=== PATIENT | female | born 1955 | race Caucasian/White ===

== ENCOUNTER 2016-11-23 08:11 | Day surgery (SDC) | payer OTHER ==
[2016-11-23] MEDS ORDERED: NS 500 ML IV 500 ML IV ONE (08:39)
[2016-11-23] MEDS ORDERED: TETRACAINE 0.5% OPHTH 1 DOSE AFFEYE ONE ×2 (09:32→11:24)
[2016-11-23] MEDS ORDERED: VIGAMOX 0.5% OPHTH 1 DOSE AFFEYE ONE ×5 (09:33→11:52)
[2016-11-23] MEDS ORDERED: PROLENSA OPHTH 1 DOSE AFFEYE ONE (09:44)
[2016-11-23] MEDS ORDERED: ALPHAGAN-P OPHTH 1 DOSE AFFEYE ONE (09:45)
[2016-11-23] MEDS ORDERED: MYDRIACIL OPHTH 1 DOSE AFFEYE ONE ×4 (09:46→09:49)
[2016-11-23] MEDS ORDERED: AK-DILATE 2.5% OPHTH 1 DOSE OP ONE ×4 (09:46→09:49)
[2016-11-23] MEDS ORDERED: CYCLOGYL 1% OPHTH 1 DOSE OP ONE ×4 (09:46→09:49)
[2016-11-23] MEDS ORDERED: BETADINE OPHTH SOLN 5% EACHEYE ONE (11:24)
[2016-11-23] MEDS ORDERED: ADRENALINE CHL INJ IJ ONE ×2 (11:34→11:41)
[2016-11-23] MEDS ORDERED: DUOVISC IO ONE ×2 (11:34→11:41)
[2016-11-23] MEDS ORDERED: BSS OPHTH (PLAIN) 500 ML with VANCOMYCIN HCL 500 MG VIAL 25 MG, ADRENALINE CHL INJ 1 MG IR ONE ×6 (11:34)
[2016-11-23] MEDS ORDERED: XYLOCAINE-MPF 1% IJ ONE ×2 (11:34→11:41)
[2016-11-23 15:59] VITALS: BP 133/76
== END 2016-11-23 12:18 | disposition home or self-care (01) ==
LOC: SURG1 08:11
PROVIDERS: ATTEND Ophthalmology
PROC: 08RK3JZ Replacement of Left Lens with Synthetic Substitute, Percutaneous Approach (ICD-10-PCS; principal; 2016-11-23 15:00)
PROC: 08DK3ZZ Extraction of Left Lens, Percutaneous Approach (ICD-10-PCS; principal; 2016-11-23 15:00)
DX: H25.12 Age-related nuclear cataract, left eye (principal); H25.012 Cortical age-related cataract, left eye
CPT/HCPCS: A4217; J0170; J3370

== ENCOUNTER 2016-12-28 07:35 | Day surgery (SDC) | payer OTHER ==
[2016-12-28] MEDS ORDERED: TETRACAINE 0.5% OPHTH 1 DOSE AFFEYE ONE ×2 (08:45→11:17)
[2016-12-28] MEDS ORDERED: NS 500 ML IV 500 ML IV ONE (08:46)
[2016-12-28] MEDS ORDERED: VIGAMOX 0.5% OPHTH 1 DOSE AFFEYE ONE ×5 (08:50→11:41)
[2016-12-28] MEDS ORDERED: PROLENSA OPHTH 1 DOSE AFFEYE ONE (09:01)
[2016-12-28] MEDS ORDERED: ALPHAGAN-P OPHTH 1 DOSE AFFEYE ONE (09:02)
[2016-12-28] MEDS ORDERED: MYDRIACIL OPHTH 1 DOSE AFFEYE ONE ×3 (09:03→09:05)
[2016-12-28] MEDS ORDERED: AK-DILATE 2.5% OPHTH 1 DOSE OP ONE ×3 (09:03→09:05)
[2016-12-28] MEDS ORDERED: CYCLOGYL 1% OPHTH 1 DOSE OP ONE ×3 (09:03→09:05)
[2016-12-28] MEDS ORDERED: BETADINE OPHTH SOLN 5% EACHEYE ONE (11:17)
[2016-12-28] MEDS ORDERED: BSS OPHTH (PLAIN) 500 ML with VANCOMYCIN HCL 500 MG VIAL 25 MG, ADRENALINE CHL INJ 1 MG IR ONE ×3 (11:29)
[2016-12-28] MEDS ORDERED: ADRENALINE CHL INJ IJ ONE (11:29)
[2016-12-28] MEDS ORDERED: DUOVISC IO ONE (11:29)
[2016-12-28] MEDS ORDERED: XYLOCAINE-MPF 1% IJ ONE (11:29)
[2016-12-28 14:20] VITALS: BP 140/80
== END 2016-12-28 12:07 | disposition home or self-care (01) ==
LOC: SURG1 07:35
PROVIDERS: ATTEND Ophthalmology
PROC: 08DJ3ZZ Extraction of Right Lens, Percutaneous Approach (ICD-10-PCS; principal; 2016-12-28 13:30)
PROC: 08RJ3JZ Replacement of Right Lens with Synthetic Substitute, Percutaneous Approach (ICD-10-PCS; principal; 2016-12-28 13:30)
DX: H25.11 Age-related nuclear cataract, right eye (principal); H25.011 Cortical age-related cataract, right eye
CPT/HCPCS: A4217; J0170; J3370

== ENCOUNTER → 2017-07-11 | Outpatient (CLI) | payer OTHER ==
--- NOTE | 2017-07-11 14:26 | CT ---
HISTORY: Degenerative fracture on 07/03/2017. Status post fall. Study: Computed tomography of the right shoulder: Multiple axial images were obtained throughout the right shoulder with subsequent reformatting in the sagittal and coronal planes. 3D reconstruction al so performed. Comparison: None Findings: The clavicle as visualized is intact. The acromion process, scapular spine, bony glenoid, coracoid pr ocess and scapular body are intact. There is a mildly comminuted fracture of the humeral head with impaction at the level of the surgical neck.. The greater tuberosity is minimally displaced by approximately 6 mm. The lesser tuberosity fr acture is essentially nondisplaced. The visualized lung parenchyma is clear. Minimal enthesopathy is noted along the medial aspect of the scapular body. The 3D reconstructed images show near anatomic position alignment of the humeral head and the humeral shaft with displacement of the greater tuberosity as described above. IMPRESSION: 1. Mildly comminuted of the humeral head with a mildly impacted fracture of the level of the surgical neck of the right humerus as described above. Reported By:
== END ==
LOC: RAD 11:17
PROVIDERS: ATTEND Orthopaedic Surgery
DX: M25.511 Pain in right shoulder (principal); S42.221A 2-part displaced fracture of surgical neck of right humerus, initial encounter for closed fracture; X58.XXXA Exposure to other specified factors, initial encounter
CPT/HCPCS: 73200; 76376